=== PATIENT | female | born 1945 | race Caucasian/White ===

== ENCOUNTER 2022-10-31 16:11 | Emergency (ER) | payer MEDICARE, MEDICAID ==
[~2022-10-31] VITALS: Ht 157.5 cm; Wt 75.0 kg
[~2022-10-31 16:11] MED LIST: ACET-3209 PO; ALEN70TA60 PO; ATOR20TA PO; CALC-212 PO; DOCU250C96 PO; DONE-46 PO; HYDR-4353 PO; IBUP-1984 PO; MEMA5TAB PO; MULT-1085 PO; PALI3TAB PO; PHEN50TA4 PO; SERT50TA PO; ZONI100C87 PO
[2022-10-31] MEDS ORDERED: albuterol 2.5 MG/3 ML nebule NEB ONE (17:40)
[2022-10-31 18:06] LABS: BASOPHILS % (AUTO) 0.6 % (0-1); EOSINOPHILS # (AUTO) 0.3 X10'3 (0-0.9); EOSINOPHILS % (AUTO) 3.6 % (0-6); HEMATOCRIT 40.4 % (35.0-45.0); HEMOGLOBIN 13.2 g/dl (12.0-16.0); LYMPHOCYTES # (AUTO) 2.8 X10'3 (1.1-4.8); LYMPHOCYTES % (AUTO) 38.2 % (21-51); MEAN CORPUSCULAR HEMOGLOBIN 30.4 PG (27.0-31.0); MEAN CORPUSCULAR HGB CONC 32.7 g/dL (33.0-36.5); MEAN PLATELET VOLUME 7.8 FL (7.4-10.4); MONOCYTES # (AUTO) 0.6 X10'3 (0-0.9); MONOCYTES % (AUTO) 8.3 % (2-12); NEUTROPHILS # (AUTO) 3.6 X10'3 (1.8-7.7); NEUTROPHILS % (AUTO) 49.3 % (42-75); PLATELET COUNT 282 X10'3 (140-440); RED BLOOD COUNT 4.34 X10'6 (4.20-5.60); RED CELL DISTRIBUTION WIDTH 13.5 % (11.5-14.5); WHITE BLOOD COUNT 7.4 X10'3 (4.5-11.0)
--- NOTE | 2022-10-31 18:17 | NUR ---
RN UPDATED PT CONTACT ERNIE FRAGOSO ON PT STATUS. PER ERNIE SHE IS WILLING TO GIVE TRANSPORTATION BACK TO [facility] UP UNTIL MIDNIGHT IF NEEDED. RN WILL NOTIFY ONCOMING RN OF THIS.
[2022-10-31 18:30] LABS: ALANINE AMINOTRANSFERASE 19 U/L (12-78); ALBUMIN 3.2 G/DL (3.4-5.0); ALBUMIN/GLOBULIN RATIO 0.8 (1.1-1.5); ALKALINE PHOSPHATASE 90 IU/L (46-116); ANION GAP 3 (8-16); ASPARTATE AMINO TRANSFERASE 19 U/L (10-37); BLOOD UREA NITROGEN 21 MG/DL (7-18); BUN/CREATININE RATIO 26.3 (10.0-20.0); CHLORIDE 109 MMOL/L (99-107); GLUCOSE 98 MG/DL (70-104); POTASSIUM 4.2 MMOL/L (3.5-5.1); SODIUM 143 MMOL/L (135-145); TOTAL CARBON DIOXIDE 31.5 MMOL/L (24-32); TOTAL PROTEIN 7.3 G/DL (6.4-8.2); eGFR 70 ML/MIN
[2022-10-31 18:50] LABS: BILIRUBIN,TOTAL 0.1 MG/DL (0.1-1.0)
[2022-10-31 19:52] VITALS: BP 131/57
[2022-10-31] MEDS ORDERED: AZIT-83 PO (20:09)
[2022-10-31] MEDS ORDERED: azithromycin 250mg tablet PO ONE (20:17)
--- NOTE | 2022-10-31 20:25 | NUR ---
PT CONTACT, ERNIE, NOTIFIED PT IS READY TO BE D/C. WILL BE HERE TO [employer] IN APPROX. 1 HOUR.
== END 2022-10-31 21:07 ==
LOC: ER 16:12
DX: J98.8 Other specified respiratory disorders (principal); E11.9 Type 2 diabetes mellitus without complications; E78.00 Pure hypercholesterolemia, unspecified; F20.9 Schizophrenia, unspecified; Z88.0 Allergy status to penicillin; Z88.1 Allergy status to other antibiotic agents; Z79.899 Other long term (current) drug therapy; Z79.1 Long term (current) use of non-steroidal anti-inflammatories (NSAID)
CPT/HCPCS: 36415; 71045; 80053; 84145; 85025; 93005; 94640; 94760; 99285

== ENCOUNTER 2023-03-24 14:38 | Emergency (ER) | payer MEDICARE, MEDICAID ==
[~2023-03-24] VITALS: Ht 152.4 cm; Wt 68.2 kg
[~2023-03-24 14:38] MED LIST changes: +DOCU-395 PO; -DOCU250C96 PO
[2023-03-24 15:10] VITALS: TEMP 98.9
--- NOTE | 2023-03-24 16:29 | NUR ---
[facility] [phone]. [facility] ([facility] [phone].
--- NOTE | 2023-03-24 17:56 | NUR ---
SPOKE WITH JOVANI TO GIVE DC INSTRUCTIONS AND UPDATE.
[2023-03-24 18:15] VITALS: BP 145/66; PULSE 80; RESP 16; O2SAT 95
== END 2023-03-24 18:16 | disposition home or self-care (01) ==
LOC: ER 14:39
DX: S32.018A Other fracture of first lumbar vertebra, initial encounter for closed fracture (principal); S09.90XA Unspecified injury of head, initial encounter; S16.1XXA Strain of muscle, fascia and tendon at neck level, initial encounter; W18.39XA Other fall on same level, initial encounter; Y93.89 Activity, other specified; Y92.89 Other specified places as the place of occurrence of the external cause; Y99.8 Other external cause status
CPT/HCPCS: 70450; 71046; 72070; 72100; 72125; 99284

== ENCOUNTER 2025-01-27 18:16 | Emergency (ER) | payer MEDICARE, MEDICAID ==
[~2025-01-27] VITALS: Ht 167.6 cm; Wt 89.0 kg
--- NOTE | 2025-01-27 19:55 | Physician Documentation ---
History of Present Illness ~ Chief Complaint: Mechanical Fall Stated Complaint: FALL ON THINNERS Time Seen by MD: 19:55 Primary Medical Doctor: DR. FLORES Mode of Arrival: EMS HPI Patient presents to the emergency room after a fall in the bathroom. Patient is on blood thinners endorses head strike and she is also complaining of mid upper back pain. She denies any limb pain. She is trying to get through the door with a walker which she is not supposed to do and in his up falling because of this. Tetanus within 5 Years?: Yes Medication Reconciliation Allergies: Coded Allergies: penicillin V potassium (Verified Allergy, Unknown, 02/12/16) Uncoded Allergies: ALL PCN (Allergy, Unknown, 02/12/16) Scheduled Alendronate Sodium* (Fosamax*), 1 TABLET PO Q7D, (Reported) Atorvastatin Calcium* (Lipitor*), 1 TABLET PO HS, (Reported) Calcium Cmb 2/Mag Cmb 12/Vitd3 (Calcium 500 Mg Tablet), 1 TAB PO BID, (Reported) Docusate Sodium (Docusate Sodium), 1 CAP PO Q12H, (Reported) Donepezil Hcl (Donepezil Hcl), 3 TAB PO HS, (Reported) Memantine Hcl* (Namenda*), 2 TAB PO BID, (Reported) Multivitamin (Multi Vitamin Daily), 1 EACH PO DAILY, (Reported) Paliperidone (Invega), 1 TAB PO DAILY, (Reported) Phenytoin (Phenytoin), 200 MG PO HS, (Reported) Sertraline Hcl* (Zoloft*), 200 MG PO DAILY, (Reported) Zonisamide (Zonisamide), 1 CAP PO BID, (Reported) Scheduled PRN Acetaminophen (Tylenol), 650 MG PO Q6H PRN PRN for pain, (Reported) Hydrocodone Bit/Acetaminophen ([place] 10-325 Tablet), 1 TAB PO TID PRN PRN for pain, (Reported) Ibuprofen* (Motrin*), 400 MG PO Q4H PRN for pain, (Reported) Past Medical History Past Medical History: Dementia, Seizures, High Cholesterol, Osteoporosis, Schizophrenia Past Surgical History: noncontributory Alcohol Use: None Drug Use: none Lives with: Other Lives In: Assisted Care Occupation: disabled Review of Systems ROS All review of systems negative except as per HPI Physical Exam Vital Signs: Temperature: 98.7, Source: Oral, Heart Rate: 77, Respiratory Rate: 16, BP: 154/70, Pulse Oximetry: 99, Weight: 89.000 Physical Exam General: Patient is awake, alert, cooperative and pleasant. At baseline per family Head: Normocephalic and atraumatic. Eyes: Conjunctival normal. EOMI. PERRL. ENT: Mucous membranes moist. Neck: Supple, trachea is midline. No cervical midline tenderness Chest: Clear to auscultation bilaterally without rales, rhonchi, or wheezes. There is no accessory muscle use or retractions. Cardiac: RRR without murmurs, gallops, or rubs. Abd: Soft, nondistended, nontender, with normoactive bowel sounds. No guarding, rebound, or rigidity. Extremities: Normal strength. Normal range of motion. No deformities or edema. Progress Results/Orders Results/Orders Orders - KVNG FOLEY MD Ct Cervical Spine (01/27/25 20:05) Ct Head (01/27/25 20:05) Ct T&L Spine (01/27/25 20:05) Completed Orders - KVNG FOLEY MD Ct Cervical Spine (01/27/25 20:05) Ct Head (01/27/25 20:05) Ct T&L Spine (01/27/25 20:05) Vital Signs 01/27/25 01/27/25 01/27/25 01/27/25 18:49 18:58 19:11 20:44 Temp 98.7 Pulse 87 77 79 Resp 16 16 16 14 B/P (MAP) 132/49 154/70 (98) 139/61 (87) Pulse Ox 96 99 96 EKG/XRAY/CT/US/VASC/MRI EKG : Additional Comment EKG interpreted by myself shows time of 193, rate 74, atrial paced complexes, normal axis, no ST changes Medical Decision Making Findings Patient presented to the emergency room after sustaining a fall as per HPI. Differentials include but are not limited to fractures, dislocations, soft tissue injury, intracranial bleed therefore CT scans performed which were reassuring for no intracranial process. Possible compression fracture however she has history of a fall a proximally year ago with a compression fracture in her back as well so this is indeterminate age. Given this is patient's area most concern of pain I do suspect she may have sustained a compression fracture. No evidence of cauda equina. We will treat her pain. I do not feel emergent labs are necessary as fall was instigated. Patient has a poor candidate for opioid medication Departure Disposition: HOME / SELF CARE / HOMELESS Impression: Primary Impression: Fall Additional Impression: Compression fracture of L1 vertebra Condition: Stable Discharge Instructions: Fall Prevention in the Home, Adult, [id number], Spinal Compression Fracture Additional Instructions: Ibuprofen and Tylenol together may be taken for pain. Follow up with doctor for possible physical therapy referral and pain management. Referrals: NO PRIMARY CARE PROVIDER (PCP) Education Educated: Patient, Family Educated regarding: diagnosis, treatment, need for follow up Signature Scribe Signature: No scribe Attestation: The note accurately reflects work and decisions made by me.Kvng Foley MD 01/27/25 21:16 KVNG FOLEY MD Jan 27, 2025 19:55
--- NOTE | 2025-01-27 20:44 | RADIOLOGY REPORT ---
Procedure: CT CT HEAD [facility] Study Date and Requested Time: 01/27/2025 08:12 PM History: fall with pain Comparison: CT CT HEAD on DOS: 03/24/23, CT CT CERVICAL SPINE on DOS: 03/24/23 Dose: CTDI: 66.13 mGy DLP: 1478.72 mGycm Technique: Multiplanar images obtained through the brain without intravenous contrast. Findings: Normal brain volume and formation. Mild chronic small vessel ischemic changes. No hemorrhages, masses, mass effect, midline shift, herniation or cytotoxic edema following a large v ascular territory. No intra-axial or extra-axial fluid collections. No evidence of hydrocephalus. The basal cisterns are patent. The pituitary gland, sella and parasellar regions are unremarkable. The cerebellar tonsils are in nor mal position. The cerebellum is unremarkable. Prominence of the posterior fossa extra-axial CSF space unchanged from prior imaging. The orbits and globes are unremarkable. The paranasal sinuses and mastoids are clear. There are no wo rrisome calvarial lesions. There is hyperostosis frontalis interna. Impression: No evidence of acute intracranial abnormality.
--- NOTE | 2025-01-27 20:49 | RADIOLOGY REPORT ---
EXAM: CT CT CERVICAL SPINE INDICATION: fall with pain EXAM DATE: 01/27/2025 08:15 PM COMPARISON: CT CT CERVICAL SPINE on DOS: 03/24/23 TECHNIQUE: Multiple axial CT images of the cervical spine were obtained using bone algorithm. Axial a nd coronal reformatting was done. Bone and soft tissue windows were reviewed. Radiation Dose Information: CT Dose: CTDI volume is 26.82 mGy. Dose-length product is 630.69 mGy*cm Findings: There is no evidence of an acute fracture or spondylolisthesis. The vertebral body heights are well-m aintained. The craniocervical junction and dens are intact. No spinal canal stenosis. There is a normal cervical lordosis. The thyroid gland is diminutive. The lung apices demonstrate no acute abnormality. The paraspinal and neck soft tissues appear within normal limits. Impression: 1. No evidence of an acute fracture.
--- NOTE | 2025-01-27 21:00 | RADIOLOGY REPORT ---
EXAM: CT CT T L SPINE INDICATION: fall with pain EXAM DATE: 01/27/2025 08:17 PM COMPARISON: None TECHNIQUE: Multiple axial CT images of the thoracic and lumbar spine were obtained using bone algorit hm. Axial and coronal reformatting was done. Bone and soft tissue windows were reviewed. Radiation Dose Information: CT Dose: CTDI volume is 34.78 mGy. Dose-length product is 1726.56 mGy*cm Findings: There is no evidence of an acute fracture or spondylolisthesis. Moderate spondylosis of the thoracic spine. Age-indeterminate mild wedge-shaped compression fracture of L1. Age-indeterminate epsc-ul-fcbieyvn co mpression fracture of L3 with vacuum disc phenomenon at L2/L3. No spinal canal stenosis. There is a normal thoracic kyphosis and lumbar lordosis. The paraspinal soft tissues appear within no rmal limits. Moderate hiatal hernia. Cholelithiasis. Atelectasis versus ground-glass opacities. Impression: 1. Age-indeterminate mild wedge-shaped compression fracture of L1 and [id number] compression fr acture of L3.
[2025-01-27] MEDS: ketorolac trometh 15mg/ml vial 15 MG/ML ML IV ONE (21:28)
[2025-01-27 22:47] VITALS: BP 134/80; PULSE 80; RESP 16; TEMP 98.2; O2SAT 99
--- NOTE | 2025-01-28 16:31 | ELECTROCARDIOGRAPH REPORT ---
[facility] Test Date: 2025-01-27 Test Time: 19:31:07 Pat Name: LINA ROGERS Department: EMERGENCY ROOM Room: Gender: F Dumpman: : 1945 Requested By: FAY CAN Order Number: [id number] Reading MD: Measurements Intervals [place] Rate: 74 P: 33 SC: 134 QRS: 4 QRSD: 102 T: 53 QT: 364 QTc: 404 Interpretive Statements Atrial-paced complexes Borderline T abnormalities, anterior leads Baseline wander in lead(s) V1 Please click the below link to view image of tracing.
== END 2025-01-27 22:52 | disposition home or self-care (01) ==
LOC: ER 18:17
DX: S32.010A Wedge compression fracture of first lumbar vertebra, initial encounter for closed fracture (principal); E78.00 Pure hypercholesterolemia, unspecified; F03.90 Unspecified dementia, unspecified severity, without behavioral disturbance, psychotic disturbance, mood disturbance, and anxiety; F20.9 Schizophrenia, unspecified; Z79.01 Long term (current) use of anticoagulants; Z88.8 Allergy status to other drugs, medicaments and biological substances; W18.39XA Other fall on same level, initial encounter; Y93.89 Activity, other specified; Y92.89 Other specified places as the place of occurrence of the external cause; Y99.8 Other external cause status
CPT/HCPCS: 70450; 72125; 72128; 72131; 93005; 96374; 99285; J1885